=== PATIENT | male | born 1985 | race Caucasian/White ===

== ENCOUNTER 2025-07-15 17:44 | Emergency (ER) | payer SELFPAY ==
[2025-07-15] MEDS: Ondansetron 4 MG/2 ML SDV IVPUSH ONE (18:09)
[2025-07-15] MEDS: Acetaminophen/HYDROcodone 325-10 MG Tab PO STA (19:35)
== END 2025-07-15 19:58 | disposition home or self-care (01) ==
LOC: MW.ED 17:44
DX: S92.002A Unspecified fracture of left calcaneus, initial encounter for closed fracture (principal); Z87.891 Personal history of nicotine dependence; W11.XXXA Fall on and from ladder, initial encounter; Y93.89 Activity, other specified
CPT/HCPCS: 72040; 72070; 72100; 72170; 73600; 73620; 96374; 96375; 99284; A9270; J2270; J2405